=== PATIENT | male | born 1985 | race Caucasian/White ===

== ENCOUNTER 2017-02-12 00:56 | Emergency (ER) | payer OTHER ==
[~2017-02-12] VITALS: Ht 177.8 cm; Wt 75.0 kg
[2017-02-12 01:18] VITALS: Ht 177.8 cm; Wt 75.0 kg
--- NOTE | 2017-02-12 01:50 | ERD ---
ER Documentation Chief Complaint Date/Time DATE: 02/12/17 TIME: 01:48 Chief Complaint BIBA [id number],in [employer] custody,HIV +,c/o dizziness,PENA & rt shoulder pain HPI 31-year-old male comes in police custody complaining of dizziness headache and right shoulder pain. No trauma. Pain mild to moderate intensity. No other current complaints. ROS All systems reviewed and are negative except as per history of present illness. Allergies Allergies: Coded Allergies: No Known Allergy (Unverified , 02/12/17) Physical Exam Vitals Vital Signs Date Time Temp Pulse Resp B/P Pulse Ox O2 Delivery O2 Flow Rate FiO2 02/12/17 01:18 98.2 102 18 140/79 96 Physical Exam Const: [] Head: Atraumatic Eyes: Normal Conjunctiva ENT: Normal External Ears, Nose and Mouth. Neck: Full range of motion..~ No meningismus. Resp: Clear to auscultation bilaterally Cardio: Regular rate and rhythm, no murmurs Abd: Soft, non tender, non distended. Normal bowel sounds Skin: No petechiae or rashes Back: No midline or flank tenderness Ext: No cyanosis, or edema Neur: Awake and alert Psych: Normal Mood and Affect Procedures/MDM This is a 31-year-old male who comes in for medical clearance. At this point there is no evidence to initiate a further workup. Patient will be discharged in police custody Departure Diagnosis: Primary Impression: Encounter for medical clearance for patient hold Condition: Stable Patient Instructions: Snf Clearance JONATAN RUST Feb 12, 2017 01:50
== END 2017-02-12 02:03 | disposition home or self-care (01) ==
LOC: EDBD 00:56 → E/R 00:56
DX: R42 Dizziness and giddiness (principal); Z02.89 Encounter for other administrative examinations
CPT/HCPCS: 99282